=== PATIENT | female | born 1965 ===

== ENCOUNTER 2021-05-16 19:02 | Emergency (ER) | payer BC ==
--- NOTE | 2021-05-16 19:48 | NUR ---
PT REFUSED TRIAGE ASSESSMENT AND VITAL SIGNS,
== END 2021-05-16 19:48 | disposition home or self-care (01) ==
LOC: ER 19:03
DX: B34.9 Viral infection, unspecified (principal); R11.2 Nausea with vomiting, unspecified; R43.8 Other disturbances of smell and taste; R50.9 Fever, unspecified; R05 Cough
CPT/HCPCS: 99281